=== PATIENT | male | born 1995 | race Hispanic/Latino ===

== ENCOUNTER 2017-11-26 19:02 | Emergency (ER) | payer SELFPAY ==
[2017-11-26 20:09] LABS: Absolute Lymphocytes (CBC) 3.8 K/uL (0.7-4.9); Absolute Monocytes 0.7 K/uL (0.1-1.3); Absolute Neutrophil 5.3 K/uL (1.8-8.0); Basophils % 0.1 % (0-1.3); Eosinophils % 1.8 % (0-4.4); Hematocrit 42.8 % (39.6-49.0); Lymphocytes % 37.6 % (15.3-44.8); MCH 29.7 pg (27.0-35.0); MCV 85.3 fL (80-100); MPV 7.9 fL (7.6-11.3); Monocytes % 7.1 % (3.3-12.3); RBC Red Blood Cell Count 5.01 M/uL (4.33-5.43)
--- NOTE | 2017-11-26 20:18 | RAD REPORT ---
EXAM DESCRIPTION: CT - Stone Protocol - 11/26/2017 8:04 pm CLINICAL HISTORY: Abdominal pain. Left lower quadrant pain for 2 days COMPARISON: March 2017 TECHNIQUE: Computed axial tomography of the abdomen pelvis was obtained without oral or IV contrast. Lack of IV and oral contrast limits evaluation of solid organs, bowel, and vessels. Coronal reformat flakito images were obtained and reviewed. All CT scans are performed using dose optimization technique as appropriate and may include automated exposure control or mA/KV adjustment according to patient size. FINDINGS: A 4 millimeter calculus is present at the left ureteral vesicle junction. Mild left hydron ephrosis is seen. A tiny nonobstructing right renal calculus is present. Fatty infiltration of liver is present. The spleen, pancreas and adrenals appear grossly normal. The appendix is unremarkable. There is no evidence of diverticulitis .small inguinal hernias contain fat. Small umbilical hernia is present. IMPRESSION: 4 millimeter calculus at the left ureterovesical junction resulting in mild left hydrone phrosis
[2017-11-26] MEDS ORDERED: KETOROLAC 30 MG/ML INJ ONE (20:20)
[2017-11-26 20:41] LABS: Albumin 4.3 g/dL (3.4-5.0); Bilirubin Direct 0.1 mg/dL (0-0.2); Bilirubin Total 0.4 mg/dL (0.2-1.0); Potassium 3.8 mmol/L (3.5-5.1); Protein, Total 8.1 g/dL (6.4-8.2)
--- NOTE | 2017-11-26 21:25 | ER ---
Nurse's Notes [facility] Name: Jayy Bhagat Age: 21 yrs Sex: Male : 1995 Arrival Date: 11/26/2017 Time: 19:06 Bed 30 Private MD: Diagnosis: Hydronephrosis with renal and ureteral calculous obstruction Presentation: 11/26 19:28 Presenting complaint: Patient states: lower left abd pain X2 days. pt stated same type ak1 pain as 2 months ago with kidney stone. Transition of care: patient was not received from another setting of care. Onset of symptoms is unknown. Risk Assessment: Do you want to hurt yourself or someone else? Patient reports no desire to harm self or others. Initial Sepsis Screen: Does the patient meet any 2 criteria? No. Patient's initial sepsis screen is negative. Does the patient have a suspected source of infection? No. Patient's initial sepsis screen is negative. Care prior to arrival: None. 19:28 Method Of Arrival: Ambulatory ak1 19:28 Acuity: MARIO 3 ak1 Historical: - Allergies: 19:29 No Known Allergies; ak1 - Home Meds: 19:29 Tylenol #3 Oral [Active]; naproxen 500 mg Oral tab 1 tab 2 times per day [Active]; ak1 - PMHx: 19:29 None; ak1 - PSHx: 19:29 None; ak1 - Immunization history:: Adult Immunizations unknown. - Social history:: Smoking status: Patient/guardian denies using tobacco. - Ebola Screening: : No symptoms or risks identified at this time. Screenin:32 Abuse screen: Denies threats or abuse. Denies injuries from another. Nutritional mg2 screening: No deficits noted. Tuberculosis screening: No symptoms or risk factors identified. Fall Risk IV access (20 points). Assessment: 20:28 General: Appears uncomfortable, Behavior is cooperative, restless. Pain: Complains of mg2 pain in left lower abdomen Pain does not radiate. Pain currently is 10 out of 10 on a pain scale. Quality of pain is described as aching, Pain began suddenly, 2 hours ago. Is intermittent, Noted to be moaning, restless. Neuro: Level of Consciousness is awake, alert, obeys commands, Oriented to person, place, time, situation. Cardiovascular: Capillary refill < 3 seconds Patient's skin is warm and dry. Respiratory: Airway is patent Respiratory effort is even, unlabored, Respiratory pattern is regular, symmetrical. GI: Abdomen is non-distended, : Reports burning with urination, since this afternoon pain in left in suprapubic area. EENT: No signs and/or symptoms were reported regarding the EENT system. Derm: Skin is intact, Skin is pink, warm \T\ dry. normal. Musculoskeletal: No signs and/or symptoms reported regarding the musculoskeletal system. Vital Signs: 19:28 BP 141 / 91; Pulse 92; Resp 20; Temp 97.2; Pulse Ox 99% on R/A; Weight 104.33 kg (R); ak1 Height 5 ft. 6 in. (167.64 cm); Pain 10/10; 21:01 BP 102 / 70; Pulse 95; Resp 18; Pulse Ox 98% on R/A; Pain 0/10; mg2 19:28 Body Mass Index 37.12 (104.33 kg, 167.64 cm) ak1 ED Course: 19:06 Patient arrived in ED. al2 19:29 Triage completed. ak1 19:29 Arm band placed on Patient placed in an exam room, on a stretcher, Patient notified of ak1 wait time. 19:34 Aryan Blanco MD is Attending Physician. gs 19:54 Chase Huston RN is Primary Nurse. mg2 19:55 Inserted saline lock: 20 gauge in right antecubital area, using aseptic technique. mg2 Blood collected. 20:02 Patient moved to [place] via wheelchair. nj 20:04 CT Stone Protocol In Process Unspecified. EDMS 20:04 CT completed. Patient tolerated procedure well. Patient moved back from [place]. nj 21:24 Kostas Concepcion MD is Referral Physician. gs 21:35 No provider procedures requiring assistance completed. IV discontinued, intact, mg2 bleeding controlled, No redness/swelling at site. Pressure dressing applied. 21:36 Patient has correct armband on for positive identification. Placed in gown. mg2 Administered Medications: 20:00 Drug: NS 0.9% 1000 ml Route: IV; Rate: 1 bolus; Site: right antecubital; mg2 21:14 Follow up: Response: No adverse reaction; IV Status: Completed infusion mg2 20:20 Drug: TORadol 30 mg Route: IVP; Site: right antecubital; mg2 21:14 Follow up: Response: No adverse reaction; Pain is decreased mg2 Outcome: 21:25 Discharge ordered by . carolin 21:36 Discharged to home ambulatory, with family. mg2 21:36 Condition: stable 21:36 Discharge instructions given to patient, family, Instructed on discharge instructions, follow up and referral plans. medication usage, Demonstrated understanding of instructions, follow-up care, medications, Prescriptions given X 2. 21:36 Patient left the ED. mg2 Signatures: Dispatcher [employer] EDMS Teresa Todd, RN RN ak1 [facility] Francisco Gregory, MD MD gs Love, Chase Moran, RN RN mg2
--- NOTE | 2017-11-26 21:25 | EDPHYS ---
Physician Documentation [facility] Name: Jayy Bhagat Age: 21 yrs Sex: Male : 1995 Arrival Date: 11/26/2017 Time: 19:06 Bed 30 Private MD: ED Physician Aryan Blanco HPI: 11/26 21:14 This 21 yrs old Male presents to ER via Ambulatory with complaints of gs Abdominal Pain. 21:14 The patient complains of pain in the left low back. The pain radiates to the left lower gs quadrant. Onset: The symptoms/episode began/occurred suddenly, yesterday. Modifying factors: The symptoms are alleviated by nothing. the symptoms are aggravated by nothing. Associated signs and symptoms: Pertinent negatives: dysuria. Severity of pain: At its worst the pain was severe in the emergency department the pain has improved mildly. Historical: - Allergies: 19:29 No Known Allergies; ak1 - Home Meds: 19:29 Tylenol #3 Oral [Active]; naproxen 500 mg Oral tab 1 tab 2 times per day [Active]; ak1 - PMHx: 19:29 None; ak1 - PSHx: 19:29 None; ak1 - Immunization history:: Adult Immunizations unknown. - Social history:: Smoking status: Patient/guardian denies using tobacco. - Ebola Screening: : No symptoms or risks identified at this time. ROS: 21:14 All other systems are negative. gs Exam: 21:14 Head/Face: Normocephalic, atraumatic. Eyes: Pupils equal round and reactive to light, gs extra-ocular motions intact. Lids and lashes normal. Conjunctiva and sclera are non-icteric and not injected. Cornea within normal limits. Periorbital areas with no swelling, redness, or edema. ENT: Nares patent. No nasal discharge, no septal abnormalities noted. Tympanic membranes are normal and external auditory canals are clear. Oropharynx with no redness, swelling, or masses, exudates, or evidence of obstruction, uvula midline. Mucous membranes moist. Neck: Trachea midline, no thyromegaly or masses palpated, and no cervical lymphadenopathy. Supple, full range of motion without nuchal rigidity, or vertebral point tenderness. No Meningismus. Chest/axilla: Normal chest wall appearance and motion. Nontender with no deformity. No lesions are appreciated. 21:14 Cardiovascular: Regular rate and rhythm with a normal S1 and S2. No gallops, murmurs, or rubs. Normal PMI, no JVD. No pulse deficits. Respiratory: Lungs have equal breath sounds bilaterally, clear to auscultation and percussion. No rales, rhonchi or wheezes noted. No increased work of breathing, no retractions or nasal flaring. Back: No spinal tenderness. No costovertebral tenderness. Full range of motion. Skin: Warm, dry with normal turgor. Normal color with no rashes, no lesions, and no evidence of cellulitis. MS/ Extremity: Pulses equal, no cyanosis. Neurovascular intact. Full, normal range of motion. Neuro: Awake and alert, GCS 15, oriented to person, place, time, and situation. Cranial nerves II-XII grossly intact. Motor strength 5/5 in all extremities. Sensory grossly intact. Cerebellar exam normal. Normal gait. 21:14 Constitutional: The patient appears alert, awake. 21:14 Constitutional: The patient appears uncomfortable. 21:14 Abdomen/GI: Palpation: mild abdominal tenderness, in the left lower quadrant. Vital Signs: 19:28 BP 141 / 91; Pulse 92; Resp 20; Temp 97.2; Pulse Ox 99% on R/A; Weight 104.33 kg (R); ak1 Height 5 ft. 6 in. (167.64 cm); Pain 10/10; 21:01 BP 102 / 70; Pulse 95; Resp 18; Pulse Ox 98% on R/A; Pain 0/10; mg2 19:28 Body Mass Index 37.12 (104.33 kg, 167.64 cm) ak1 MDM: 19:52 Patient medically screened. 21:14 Differential diagnosis: nephrolithiasis, pyelonephritis, UTI. Data reviewed: vital gs signs, nurses notes. Response to treatment: the patient's symptoms have markedly improved after treatment, and as a result, I will discharge patient. 11/26 19:53 Order name: Basic Metabolic Panel; Complete Time: 20:45 11/26 19:53 Order name: CBC with Diff; Complete Time: 20:45 11/26 19:53 Order name: Creatinine for Radiology; Complete Time: 20:45 11/26 19:53 Order name: Hepatic Function; Complete Time: 20:45 11/26 19:53 Order name: Lipase; Complete Time: 20:45 11/26 19:53 Order name: IV Saline Lock; Complete Time: :54 11/26 19:53 Order name: Labs collected and sent; Complete Time: :54 11/26 19:53 Order name: CT Stone Protocol; Complete Time: 20:45 Administered Medications: 20:00 Drug: NS 0.9% 1000 ml Route: IV; Rate: 1 bolus; Site: right antecubital; mg2 21:14 Follow up: Response: No adverse reaction; IV Status: Completed infusion mg2 20:20 Drug: TORadol 30 mg Route: IVP; Site: right antecubital; mg2 21:14 Follow up: Response: No adverse reaction; Pain is decreased mg2 Disposition: 11/26/17 21:25 Discharged to Home. Impression: Hydronephrosis with renal and ureteral calculous obstruction. - Condition is Stable. - Discharge Instructions: Hydronephrosis. - Prescriptions for Naprosyn 500 mg Oral Tablet - take 1 tablet by ORAL route 2 times per day take with food; 14 tablet. Tylenol- Codeine #4 300-60 mg Oral Tablet - take 1 tablet by ORAL route every 6 hours As needed; 12 tablet. - Medication Reconciliation Form, Thank You Letter, Antibiotic Education, Prescription Opioid Use form. - Follow up: Kostas Concepcion MD; When: 2 - 3 days; Reason: Re-evaluation by your physician. Signatures: Dispatcher [employer] [facility] Teresa Todd RN RN ak1 Aryan Blanco MD MD Chase Huston RN RN mg2 Corrections: (The following items were deleted from the chart) 21:36 21:25 11/26/2017 21:25 Discharged to Home. Impression: Hydronephrosis with renal and mg2 ureteral calculous obstruction. Condition is Stable. Forms are Medication Reconciliation Form, Thank You Letter, Antibiotic Education, Prescription Opioid Use. Follow up: Kostas Concepcion; When: 2 - 3 days; Reason: Re-evaluation by your physician. gs
== END 2017-11-26 21:36 | disposition home or self-care (01) ==
LOC: ER 19:02
DX: N13.2 Hydronephrosis with renal and ureteral calculous obstruction (principal)
CPT/HCPCS: 36415; 74176; 76377; 80048; 80076; 83690; 85025; 96361; 96374; 99284